=== PATIENT | female | born 1985 | race Caucasian/White ===

== ENCOUNTER → 2018-01-23 | Outpatient (CLI) | payer OTHER ==
--- NOTE | 2018-01-23 19:28 | Diagnostic Imaging Report ---
Thyroid Scan with Single Uptake Reason for exam: 32 F with abnormal thyroid ultrasound at outside facility in 11/2017. Patient reports that nodules were seen in the left lobe and the right lobe was suspicious for nodules. Radiopharmaceutical: I-123 [place] 0.3 mCi Report: After oral administration of I-123 [place], the 7.5-hour thyroid uptake of iodine is 14% (normal 6-16%). Images of the thyroid was obtained in the anterior and anterior oblique projections. The thyroid appears generally enlarged. The right thyroid lobe is slightly larger than the left lobe but both loves have smooth contours. There is Distribution of tracer appears throughout both lobes. No focal areas of increased or decreased tracer activity are identified within the thyroid lobes or isthmus. The thyroid is in a normal anatomic location. A pyramidal lobe is not seen. There is no aberrant functioning thyroid tissue seen in the area scanned. Impression: 1. Normal thyroid uptake of iodine 2. Scan findings consistent with simple goiter. No nodular thyroid disease is identified. Signed by: Dr. Opal Cruz M.D. on 01/23/2018 7:24 PM
== END ==
LOC: NM 08:28
PROVIDERS: ATTEND Surgery
DX: E04.9 Nontoxic goiter, unspecified (principal)
CPT/HCPCS: 78014; A9516

== ENCOUNTER → 2018-04-25 | Outpatient (CLI) | payer OTHER ==
--- NOTE | 2018-04-25 10:07 | Diagnostic Imaging Report ---
Ultrasound-guided right thyroid nodule fine needle aspiration Pre-Procedure Diagnosis: Right thyroid nodule Post-procedure Diagnosis: Right thyroid nodule status post [employer] Supervisor: Geraldo Escobedo MD Sedation: 1% lidocaine local anesthesia. Estimate blood loss: None. Complications: None Implants/Grafts: None Specimen: 25-gauge fine needle aspiration x 6 Procedure/Findings: Informed consent was obtained and the patient positioned supine in the ultrasound suite. A timeout was performed, followed by preliminary ultrasound of the right neck demonstrating a right sided solid isoechoic thyroid nodule. A path to the right thyroid lesion was identified. The neck was prepped and draped in standard sterile fashion. Local anesthesia with 1% subcutaneous lidocaine was administered. Using real-time ultrasound guidance, a 25-gauge needle was advanced into the right sided thyroid nodule and fine needle aspirates were obtained. Post procedural ultrasound demonstrated no immediate complication. At the end of the procedure a sterile dressing was applied. Impression: Ultrasound guided fine needle aspiration of right thyroid nodule as above. Signed by: Dr. Geraldo Escobedo MD on 04/25/2018 10:03 AM
== END ==
LOC: US 08:01
PROVIDERS: ATTEND Surgery
DX: E04.0 Nontoxic diffuse goiter (principal)
CPT/HCPCS: 10005; 88112